=== PATIENT | female | born 1985 | race Caucasian/White ===

== ENCOUNTER 2022-09-21 09:04 | Outpatient (CLI) | payer OTHER, SELFPAY ==
[2022-09-21 10:15] LABS: H pylori Ag Stool* Negative (Negative)
== END 2022-09-21 09:05 | disposition home or self-care (01) ==
LOC: NFLDREF 09:04
PROVIDERS: PCP Family Medicine; Visit Provider Family Medicine
DX: R10.13 Epigastric pain (principal)
CPT/HCPCS: 87338

== ENCOUNTER 2023-05-07 11:05 | Outpatient (CLI) | payer OTHER, SELFPAY ==
--- NOTE | 2023-05-07 11:00 | CRLHL7_ITS ---
For Patients: As a result of the Century Cures Act, medical imaging exams and procedure reports are released immediately into your electronic medical record. You may view this report before your referring provider. If you have questions, please contact your health care provider. INDICATION: First trimester scan, establish dates. COMPARISON: None. TECHNIQUE: Real-time huddleston-scale imaging of the pelvis was performed. FINDINGS: Sonographic imaging demonstrates a single living intrauterine gestation. The embryo demonstrates a regular cardiac rate measuring 167 beats per minute. The embryo`s crown-rump length measurement of 1.7 cm corresponds to a gestational age of 8 weeks 1 day with a sonographic due date of 12/16/2023. There is a normal-appearing yolk sac. There are no gross abnormalities noted within the embryo at this early state of development. The gestational sac has a normal appearance. There is no evidence of a perigestational hemorrhage. The amount of fluid within the sac appears appropriate for gestational age. The cervix is closed. Posterior fundal fibroid measuring 1.6 x 1.1 x 1.5 cm. The ovaries are of normal size. Corpus luteal cyst left ovary. There are no suspicious fluid collections noted in the cul-de-sac. IMPRESSION: Single living intrauterine with sonographic gestational age 8 weeks 1 day and sonographic due date 12/16/2023. Dictated by Masoud John MD @ 05/07/2023 11:47:58 AM (Electronically Signed)
== END 2023-05-07 11:06 | disposition home or self-care (01) ==
LOC: US 11:07
PROVIDERS: PCP Family Medicine; Visit Provider Physician Assistant
DX: Z34.91 Encounter for supervision of normal pregnancy, unspecified, first trimester (principal); Z3A.01 Less than 8 weeks gestation of pregnancy
CPT/HCPCS: 76801; 84443; 86592; 86703; 86704; 86706; 86762; 86787; 86803; 86850; 86900; 86901; 87086; 87340; 87491; 87591

== ENCOUNTER 2023-05-17 11:04 | Outpatient (CLI) | payer OTHER, SELFPAY ==
--- NOTE | 2023-05-17 11:00 | CRLHL7_ITS ---
For Patients: As a result of the Century Cures Act, medical imaging exams and procedure reports are released immediately into your electronic medical record. You may view this report before your referring provider. If you have questions, please contact your health care provider. INDICATION: NONTOXIC GOITER COMPARISON: none TECHNIQUE: Lemos scale and color Doppler images were acquired of the thyroid gland. FINDINGS: The thyroid gland demonstrates normal uniform echogenicity and has a smooth outer contour. The right lobe measures 5.1 x 1.4 x 1.8 cm and the left lobe measures 5.9 x 1.3 x 2.1 cm in size. Isthmus measures 3 millimeters. Solid and cystic nodule right thyroid lobe measures 8 x 5 x 8 millimeters. The color Doppler images demonstrate increased vascularity. There is no evidence of cervical lymphadenopathy or parathyroid mass. IMPRESSION: Heterogeneous thyroid gland with increased vascularity. No dominant or suspicious nodule. Dictated by Masoud John MD @ 05/17/2023 11:35:58 AM (Electronically Signed)
== END 2023-05-17 11:05 | disposition home or self-care (01) ==
PROVIDERS: PCP Family Medicine; Visit Provider Physician Assistant
DX: E04.9 Nontoxic goiter, unspecified (principal)
CPT/HCPCS: 76536

== ENCOUNTER 2023-09-25 12:31 | Outpatient (CLI) | payer OTHER, SELFPAY | END 2023-09-25 12:32 | disposition home or self-care (01) | LOC: NFLDREF 09-27 07:58 | PROVIDERS: PCP Family Medicine; Referring Provider Family Medicine; Visit Provider Advanced Practice Midwife | DX: Z34.83 Encounter for supervision of other normal pregnancy, third trimester (principal) | CPT/HCPCS: 86592 ==

== ENCOUNTER 2023-11-20 13:35 | Outpatient (CLI) | payer OTHER, SELFPAY | END 2023-11-20 13:36 | disposition home or self-care (01) | LOC: NFLDREF 11-22 05:55 | PROVIDERS: PCP Family Medicine; Referring Provider Family Medicine; Visit Provider Advanced Practice Midwife | DX: Z34.93 Encounter for supervision of normal pregnancy, unspecified, third trimester (principal); Z34.83 Encounter for supervision of other normal pregnancy, third trimester; O09.523 Supervision of elderly multigravida, third trimester | CPT/HCPCS: 76816; 76819; 87081; 87653 ==

== ENCOUNTER 2023-11-27 10:21 | Outpatient (CLI) | payer OTHER, SELFPAY ==
[2023-12-11 01:07] VITALS: BMI 25.0
== END 2023-11-27 10:22 | disposition home or self-care (01) ==
LOC: NFLDREF 10:22
PROVIDERS: PCP Family Medicine; Visit Provider Advanced Practice Midwife
DX: R30.0 Dysuria (principal)
CPT/HCPCS: 87086

== ENCOUNTER 2023-12-11 02:33 | Inpatient (IN) | payer OTHER, SELFPAY ==
[2023-12-11] VITALS (19 sets, daily range): BP systolic 104–134; BP diastolic 55–85; PULSE 64–87; RESP 16; TEMP 36.3–37.1; O2SAT 96–98; BMI 25.0
--- NOTE | 2023-12-11 02:10 | W.PM.LDBA ---
Subjective History of Present Illness Date Seen: 12/11/23 Narrative: Rasheeda is being admitted to Labor and Delivery for SROM of clear fluid at 2030 this evening. She is a 38 year old at 39.0 weeks gestation. Her full history and physical was dictated by Xavi Jeter CNM on 11/27/23. Please see this for details. Specific Issues/Plans Has corinne Brito, Partner Ashok H&P done by GAEL Al on 11/27/2023 1. AMA, 40 at time of delivery Cell free DNA: [id number], low risk Level 2 ultrasound: Referral to [place] per patient request; records received 08/28; 07/30/23:[facility] [place] 20.2 (No clear EFW), no abnormalities noted, placenta is posterior without previa, LASHON normal, cervix is long and closed. Recommend low dose ASA (she declines), growth US at 28 and 36 weeks (Repeat at least once in 3rd trimester), BPP or NST starting at 36 weeks, and IOL at 39 weeks but no later than 41 weeks. Growth ultrasound between 28 and 36 weeks: agrees to do one US, prefers 36 weeks; Plan BPP and US at 36 weeks: EFW 70%, BPP 8/8 Weekly NST starting 37 weeks Recommend delivery at 39-41 weeks, would prefer IOL at 41 weeks 2. Thyroid enlargement noted at 1st OB Thyroid ultrasound:cystic nodule right thyroid lobe measures 8 x 5 x 8 millimeters, follow up needed? Consider repeat , consider biopsy? TSH: Normal 3. Hx of melanoma Consider sending placenta to pathology per [facility] recommendation for concern of metastasis 4. GBS positive Declines antibiotics, declination signed Flu shot:05/07/23 OB - Problem Based A/P Additional Plan (1) Breech presentation: Status: Acute (2) SROM (spontaneous rupture of membranes): Status: Acute (3) 39 weeks gestation of : Status: Acute Plan Assessment:?? at 39.0 weeks gestation?? GBS positive? Patient is coping well with challenges of labor.?? Labor type: Spontaneous, Early labor? Category 1 FHR pattern.? complicated by: 1. AMA, 40 at time of delivery Cell free DNA: [id number], low risk Level 2 ultrasound: Referral to [place] per patient request; records received 08/28; 07/30/23:[facility] [place] 20.2 (No clear EFW), no abnormalities noted, placenta is posterior without previa, LASHON normal, cervix is long and closed. Recommend low dose ASA (she declines), growth US at 28 and 36 weeks (Repeat at least once in 3rd trimester), BPP or NST starting at 36 weeks, and IOL at 39 weeks but no later than 41 weeks. Growth ultrasound between 28 and 36 weeks: agrees to do one US, prefers 36 weeks; Plan BPP and US at 36 weeks: EFW 70%, BPP 8/8 Weekly NST starting 37 weeks Recommend delivery at 39-41 weeks, would prefer IOL at 41 weeks 2. Thyroid enlargement noted at 1st OB Thyroid ultrasound:cystic nodule right thyroid lobe measures 8 x 5 x 8 millimeters, follow up needed? Consider repeat , consider biopsy? TSH: Normal 3. Hx of melanoma Consider sending placenta to pathology per [facility] recommendation for concern of metastasis 4. GBS positive Declines antibiotics, declination signed. On admission has now decided to receive antibiotics. 5. Breech position on admission Plan:?? ?Admit to L & D? IV access: SL for surgery Monitoring per policy: continuous? GBS prophylaxis initiated for GBS positive status. Will treat with antibiotics per protocol.? Patient encouraged to reposition, side lying release until surgery team arrives. Outbound Sales Professional is present and helping with positioning. OB consulted for breech positioning and need for section Delivery/Labor/Induction Plan Plan: Section OB Exam Physical Exam Vital signs: Temp Pulse Resp BP Pulse Ox 98.2 F 69 16 104/55 L 98 12/11/23 01:09 12/11/23 01:09 12/11/23 01:09 12/11/23 01:09 12/11/23 01:10 Narrative: Vitals Reviewed Constitutional:? Alert and oriented x3 HEENT:? Normocephalic, atraumatic Neck:? Supple Lungs:? Clear to auscultation bilaterally Heart:? Regular rate and rhythm, no murmur, rub or gallop Abdomen:? Soft, nontender, and gravid. Vertex by Darinel's, confirmed with cervical exam. Extremities:? No edema or erythema Cervix: deferred, breech by Darinel's and US NST: 125 bpm/moderate variability/+accelerations/no decelerations/rare contractions Detailed Labor and Delivery Exam Patient Gravid: Yes
[2023-12-11] MEDS: LACTATED RINGERS 1000 ML 1,000 ML 900 ML IV (02:26)
[2023-12-11 02:43] LABS: Basophils Absolute Auto 0.02 K/uL (0.00-0.30); Basophils Percent Auto 0.3 % (0.0-3.0); Eosinophils Absolute Auto 0.01 K/uL (0.00-0.50); Eosinophils Percent Auto 0.1 % (0.0-7.0); Hematocrit 37.8 % (33.0-51.0); Hemoglobin* 12.3 gm/dL (12.0-16.0); Immature Granulocytes Abs Auto 0.08 K/uL (0.00-0.30); Lymphocytes Percent Auto 19.7 % (20-44); Mean Corpuscular HGB Conc 33 gm/dL (32-36); Mean Corpuscular Hemoglobin 30 pg (26-34); Mean Corpuscular Volume 93 fL (80-100); Monocytes Percent Auto 9.3 % (0.0-11.0); Neutrophils Absolute Auto 5.39 K/uL (1.7-7.0); Neutrophils Percent Auto 69.6 % (42.0-72.0); Platelet Count* 201 K/uL (140-440); Red Blood Count 4.08 m/uL (4.00-5.20); White Blood Count* 7.75 K/uL (4.50-11.00)
[2023-12-11 02:47] LABS: Slide Review Reflex No
--- NOTE | 2023-12-11 03:21 | PM.OBCN1 ---
OB - CN: HPI Date of Consult Time Seen by Provider: 02:50 Date Seen: 12/11/23 Patient: [facility] Patient Consult date: 12/11/23 Requesting Physician: Amy Forte CNM Primary Care Provider: Masoud Rivera MD Consult Narrative Reason for consult: malpresentation Narrative: The patient is a 38 year old G 4 P 2014 at 39 0/7 weeks gestation that was admitted to the Center on 12/11/23 after SROM for delivery. I was called in by GAEL due to breech presentation. History of Present Dating criteria: based on LMP care: good care Ultrasounds: normal 1st trimester US and normal mid trimester US History History 4 Elective abortions 1 Para 2 Spontaneous abortions Hx # Term Pregnancies 2 Ectopic pregnancies Hx # Pregnancies Multiple births Number of Living Children 2 Past Pregnancies Del. Date GA/Weeks Outcome Route wt Inf Gender Labor Lgth Anesthesia Location Provider Compli Unknown elective 07/15/16 40 live - full term vaginal delivery 3.203 kg Male 8hrs other [place] 11/20/17 39 live - full term vaginal delivery 3.062 kg Female 5hrs other [place] Labs GBS status: positive OB Labs: Lab Assessment Start: 12/11/23 02:25 Freq: ONCE Status: Complete Protocol: PC.OBGBS Activity Type Activity Date Activity User E-sign Co-sign Detail Recorded Client Recorded Date Recorded By Document 12/11/23 02:33 [facility] [id number] 12/11/23 02:33 [facility] 12/11/23 02:33 Lab Assessment GBS Status positive Is Patient Allergic to Penicillin? 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 - Attention-deficit hyperactivity disorder, predominantly inattentive type (ICD-10) History of use of contraceptive intrauterine device (IUD) (12/2018) ?Z92.0 - Personal history of contraception (ICD-10) History of atypical nevus (2016) ?Z87.898 - Personal history of other specified conditions (ICD-10) Anxiety and depression ?F41.9 - Anxiety disorder, unspecified (ICD-10) ?F32.A - Depression, unspecified (ICD-10) Surgical History Vaginal delivery ?O80 - Encounter for full-term uncomplicated delivery (ICD-10) History of melanoma excision (03/2019) ?Z98.890 - Other specified postprocedural states (ICD-10) ?Z85.820 - Personal history of malignant melanoma of skin (ICD-10) Family History Father Alcohol dependence Diabetes Paternal Grandmother Diabetes Family/Other Colon cancer High cholesterol Nonmelanoma skin cancer Social History Narrative: History of blood transfusion: no. SOCIAL HISTORY: Occupation: [id number] mom. Marital status: . Episcopalian/cultural needs: no. Chemical or radiation exposure: no. Pre- tobacco use: no. Pre- alcohol use: no. Current tobacco use: no. Current alcohol use: no. Recreational drug use: no. Dietary restrictions: no. Blood transfusion acceptable in an emergency: yes. FAMILY AND GENETIC HISTORY: Negative for recurrent loss, defects, inheritable disease PSYCHOSOCIAL HISTORY: History of depression or currently depressed: yes, history. Current or past physical, emotional, or sexual mistreatment: no. Problems that will make it hard to make it to appointments: no. Smoking Status: Never smoker Little interest or pleasure in doing things: not at all Feeling down, depressed, or hopeless: not at all Meds Home Medications and Allergies Home Medications Medication Instructions Recorded Confirmed Type docosahexaenoic acid 200 mg mg PO 05/07/23 12/05/23 History capsule ( DHA) esomeprazole magnesium 20 mg 20 mg PO QDAY 11/27/23 12/11/23 History capsule,delayed release ferrous gluconate 240 mg (27 mg 240 mg PO QDAY 11/27/23 12/11/23 History iron) tablet (Ferate) Allergies Allergy/AdvReac Type Severity Reaction Status Date / Time No Known Drug Allergies Allergy Verified 12/05/23 09:22 OB - H&P: Exam Physical Exam: Vital signs: Temp Pulse Resp BP Pulse Ox 98.2 F 69 16 104/55 L 98 12/11/23 01:12/11/23 01:12/11/23 01:12/11/23 01:12/11/23 01:10 Narrative: Bedside US repeated and baby is VERTEX! Cervix: 4.5cm/80/vertex/-1 OB - Results Labs Labs: Short CBC 12/11/23 Range/Units 02:30 WBC 7.75 (4.50-11.00) K/uL Hgb 12.3 (12.0-16.0) gm/dL Hct 37.8 (33.0-51.0) % Plt Count 201 (140-440) K/uL OB - CN: A/P Assessment and Plan (1) Breech presentation: Status: Acute (2) SROM (spontaneous rupture of membranes): Status: Acute (3) 39 weeks gestation of : Status: Acute Plan Unstable lie. Bedside US repeated prior to proceeding to OR and baby is vertex. Cervical exam completed and patient is 4.5cm/80%/-1. Will proceed with expectant management, care to be resumed by CNM. Will remain aware.
[2023-12-11] MEDS: AMPICILLIN 2 GM in 0.9 % SODIUM CHLORIDE Mini-bag 100 ML IVPB (03:27)
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
[2023-12-11] MEDS: OXYTOCIN 30 unit/500 ML in NS 30 UNIT/500 ML BAG 325 UNIT IVPB (04:38)
--- NOTE | 2023-12-11 04:54 | W.PM.OBVAGDE ---
OB Procedure Vag Delivery Mother Details Mother Details: The patient is a 38 year-old, 4, Para 2, admitted on 12/11/23 at 39.0 weeks gestation. : 4 Para: 3 Weeks Gestation: 39.0 Admission Date: 12/10/23 Additional Details Amniotic Membrane Status: SROM Amniotic Membrane Rupture Date: 12/10/23 Amniotic Membrane Rupture Time: 22:30 Amniotic Membrane Fluid Description: Clear Analgesia/Anesthesia Type: Nitrous Oxide Waterbirth: No Pitcoin: Yes (for AMTSL) Intrapartal Events: None Labor Onset: 03:30 Complete: 04:25 Pushin:25 Heart: heart tones during second stage were intermittently monitored FHR 125-135 with audible increases in heart rate, with no audible decelerations heard. Delivery Details Delivery Date: 12/11/23 Delivery Time: 04:35 Route of delivery: Gender: Female Viability: Alive; Heart Rate Present Position at Delivery: OA Delivery Details: 38?y.o?at 39.0 weeks.? Rasheeda had SROM for clear fluid at home around 2229, when she arrived to the birthing unit she was leaking a large amount of clear fluid and having contractions about every 5 minutes. When examining her by Darinel's fetus did not feel to be vertex, bedside US confirmed oblique breech position. ?She was informed of this finding and the OB was consulted for possible section. While waiting for OB provider to arrive to discuss surgery, Rasheeda did some inversions and side lying release. Just before going to the OR she requested another exam with the US for position and fetus was found vertex. She then began to have more regular labor contractions with increased intensity and progressed normally to complete. ? She became complete at 0425.??She pushed in high fowlers and hands and knees positions effectively.? Spontaneous vaginal delivery at 0435 of?a viable? female infant.??Delivered in vertex OA position.??Shoulders delivered easily.? Spontaneous cry noted.?? placed on maternal abdomen.??Cord?was clamped and cut after a 5+ minute delay.??Nose and mouth were bulb suctioned.? Shoulder dystocia: no? Nuchal cord: no? Meconium stained?fluid: no? Water : no? ? ? 8 at 1 minute and 9 at 5 minutes.? Weight is pending. ? Placenta delivered spontaneously and?complete?at 0443 with a?3 vessel?cord.?? Bleeding controlled with fundal massage and?pitocin?for AMTSL.? ? Mother and infant were stable after delivery.? ? Lacerations:? .??First degree vaginal laceration, not bleeding, not repaired?with shared decision making. ? Bleeding?post delivery?was: minimal. ?The fundus was firm to palpation.? Blood loss: 50?mL.? Blood loss measurement type: QBL? ? ? Sponge,?lap?and needles counts are correct.? Mother and infant were stable after delivery.? 1 Minute Interval Total Score: 8 5 Minute Interval Total Score: 9 Additional Details Shoulder Dystocia: No Placenta Delivery Time: 04:43 Placental Delivery Description: Spontaneous Procedure Done: Global Blood Loss: 50 Laceration: Vaginal - 1st Degree Blood Loss Measurement Type: QBL Bakri Used: No Sponge/Need Count Correct: Yes Cord Vessel Description: 3 Vessels Event Summary Status: Mother and infant were stable after delivery. Disposition: floor
[2023-12-11] MEDS: IBUPROFEN 600 MG TABLET PO ×2 (12:01→20:59)
--- NOTE | 2023-12-11 16:19 | PC.SOCIAL ---
Received social work referral. Met with pt to discuss concerns for safety. Pt has a history of depression and anxiety. Discussed history with pt. Pt has been in therapy in the past and has resources to get therapy, if needed. Pt identifies that she has a solid support network that includes her hand shaker coming into her home for the next few weeks in the mornings, her mother coming into the home in the afternoons (for an unlimited period of time, as needed), and several friends (that have children) that she meets with as support. Pt is aware of signs and symptoms of post- depression as she identifies that she has been diagnosed with it in the past with her other pregnancies post . Pt does not have any concerns for safety at her home. Discussed pt's concern to stay in the hospital for two days and pt's not being in agreement. Pt states that her has anxiety and worries about things often, but is not unsafe to be around for pt or pt's children. Pt informs that in her relationship, per and agreement with her , she is the primary caregiver for the children at home and her takes the financial responsibility and works at a business he owns. Pt informs that her 6 year old and 7 year old are currently with her and mother (sharing responsibility) during her hospital stay. Pt's is very busy with the business and doesn't have much time at home with the children. Pt reports that she is financially secure and the has all items needed to return home. Pt is not in need of any resources at this time. Informed pt that she may reach out to social work at any time if she has any questions or needs resources. Provided update to nursing. Social Work will follow up as needed.
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
[2023-12-11] MEDS: ACETAMINOPHEN 500 MG TABLET 1000 MG PO (18:35)
[2023-12-12 04:00] VITALS: BP 124/79; PULSE 60; RESP 16; TEMP 36.6; O2SAT 99
[2023-12-12] MEDS: IBUPROFEN 600 MG TABLET PO ×4 (04:21→20:48)
[2023-12-12] MEDS: DOCUSATE SODIUM 100 MG CAPSULE PO (06:58)
[2023-12-12 08:00] VITALS: BP 126/76; PULSE 81; RESP 16; O2SAT 99
--- NOTE | 2023-12-12 09:02 | PM.OBPNVD1 ---
OB - PN:Subj Subjective Date Seen: 12/12/23 Patient comments OB post-: no complaints, pain well controlled and flatus present [place] feeding status: exclusively Narrative: Rasheeda is a 38 y.o. who was admitted to L & D for spontaneous labor. ?She had an uncomplicated NVD.?The patient feels well. ?The pain is well controlled with current medications. ?She has no new complaints. ?She is breast feeding and reports things are going well.? the patient has done well.? Vitals have been stable.? She has remained afebrile.? Has a good appetite, is tolerating a general diet. ?She is voiding without difficulty.? She is passing gas and has not had a bowel movement.? She is ambulating and denies any dizziness.? Has Small amount of rubra lochia. OB - PN: Obj Exam Physical Exam: Vital signs: Temp Pulse Resp BP Pulse Ox O2 Del Method 97.9 F 81 16 126/76 99 Room Air 12/12/23 04:00 12/12/23 08:00 12/12/23 08:00 12/12/23 08:00 12/12/23 08:00 12/12/23 08:00 Narrative: GENERAL APPEARANCE:? normal affect, alert, no distress MOOD:? appropriate CHEST:? clear to auscultation HEART:? regular rate and rhythm ABDOMEN:? soft, non-tender the uterine fundus is At Umbilicus, Midline and is appropriate for the stage of recovery. PERINEUM:? mild edema of the perineum, there is a vaginal Laceration,? that is healing well. EXTREMITIES:? normal and no edema OB - PN: A/P Delivery Assessment and Plan (1) Lactating mother: Status: Acute (2) care and examination immediately after delivery: Status: Acute Plan day: 1 Plan: routine care Comments: Routine care Lactating mother. May see if desired. Anticipate discharge tomorrow.
[2023-12-12 16:55] VITALS: BP 100/62; RESP 18; TEMP 36.7; O2SAT 96
[2023-12-13 00:09] VITALS: BP 122/70; PULSE 72; RESP 18; TEMP 36.7; O2SAT 97
[2023-12-13] MEDS: IBUPROFEN 600 MG TABLET PO (04:16)
[2023-12-13] MEDS: DOCUSATE SODIUM 100 MG CAPSULE PO (04:17)
--- NOTE | 2023-12-13 07:35 | P.DS_ITS ---
DS: Providers Provider Date Seen: 12/13/23 Date of admission: 12/11/23 02:33 Primary care physician: Masoud Rivera MD Admitting Clinician: Amy Forte CNM Consults: 12/11/23 02:26 Consult to Physician [CONS] Routine Comment: Consulting Provider: Misti Sewell Has provider been notified: Yes 12/11/23 06:52 Consult to Humanities And Languages Professor [CONS] Routine Comment: Reason for Consult:: Social Service Consult Attending Physician on discharge: Amy Forte CNM Date of Discharge: 12/13/23 DS: Diagnosis Discharge Diagnosis (1) Lactating mother: Status: Acute (2) care and examination immediately after delivery: Status: Acute (3) Anxiety and depression: Status: Acute (4) ADHD, predominantly inattentive type: Status: Acute (5) Thyroid enlargement: Status: Acute Exam Narrative: Exam Narrative: GENERAL APPEARANCE:? normal affect, alert, no distress? MOOD:? appropriate? CHEST:? clear to auscultation and percussion? HEART:? regular rate and rhythm? ABDOMEN:? soft, non-tender the uterine fundus is U/2 and is appropriate for the stage of recovery.? PERINEUM:? mild edema of the perineum, there is a 1st degree laceration that is healing well.? EXTREMITIES:? normal and no edema? Const: Vital Signs, click to edit/add: Vital Signs - 24 hr 12/12/23 08:00 12/12/23 08:00 12/12/23 16:55 Temperature 98.0 F Pulse Rate [Blood Pressure Cuff] 81 Respiratory Rate 16 16 18 Blood Pressure 126/76 Blood Pressure [Ri ght Arm] 126/76 100/62 Pulse Oximetry 99 99 96 Oxygen Delivery Me thod Room Air Room Air 12/13/23 00:09 Temperature 98.1 F Pulse Rate [Blood Pressure Cuff] 72 Respiratory Rate 18 Blood Pressure Blood Pressure [Ri ght Arm] 122/70 Pulse Oximetry 97 Oxygen Delivery Me thod Room Air Documenting provider has reviewed patient's vital signs: yes OB - DS: Summary Hospital Course Hospital Course: The patient is a 38 year old G 4 P 3 at 39.0 weeks gestation that was admitted to the Center on 12/11/23 for SROM. She had an uncomplicated vaginal delivery. She delivered a viable female . She is breast feeding and denies concerns. the patient has done well. Her pain is well controlled with current medications.? She has no new complaints.? Urinary output is adequate and she is voiding without difficulty.? Has a good appetite, is tolerating a general diet, is passing flatus, and has not had a bowel movement.? Has small amount of rubra lochia.? She is ambulating well. She is planning on partner vasectomy for control. Encouraged condoms/diaphragm until testing is complete. Peripartum Data delivery method: Vaginal Laceration description: Vaginal - 1st Degree Episiotomy description: None Procedures: Procedures Operation Date: 12/11/23 03:00 Actual Procedure Side Surgeon p Section Misti Sewell MD complications: none [place] Gender: Female Discharge Plan: Home Status at Discharge Functional status at discharge: independent ambulation Overall status at discharge: patient is progressing back to baseline Time Spent with Patient Time attestation: Total time spent providing and/or coordinating discharge services: Discharge Plan Discharge Disposition: Home, Self-Care Date of Admission: 12/11/23 02:33 Attending Provider on Discharge: Angélica Villalba Consulting Providers: Misti Sewell Primary Care Provider: Masoud Rivera Condition: Stable Anticipated Discharge Date/Time: 12/13/23 09:00 Discharge Medications: New docusate sodium 100 mg Capsule 100 mg PO DAILY Qty: 90 0RF Rx Instructions: Take 1-2 tablets daily as needed for constipation. ibuprofen 600 mg Tablet 600 mg PO Q6H PRNQty: 20 0RF Continued DHA 200 mg capsule PO esomeprazole magnesium 20 mg capsule,delayed release(DR/EC) 20 mg PO QDAY Discontinued ferrous gluconate [Ferate] 240 mg (27 mg iron) tablet 240 mg PO QDAY Discharge Orders: Discharge Order (Routine); Ordered 12/13/23 Ordered By: Angélica Villalba Patient Education: OB Vaginal/Breast Feeding Additional Instructions: Discharge instructions were reviewed with the patient including signs and symptoms of infection and home going medications.? Lifting Restrictions: 20 pounds for 6? weeks? ?? Do not drive while taking narcotic pain meds.? Off Work or School for 6 weeks.? ?? Symptoms to report to doctor:? -Bleeding that saturates more than one pad per hour? -Passing clots larger than the size of a golf ball? -Pain not relieved by prescribed medication? -Fever above 100.4 degrees Fahrenheit? -A foul vaginal odor? -Difficulty in emotions, mood and functions? -Thoughts of hurting yourself and/or ? -Painful, reddened area in your breast? -Any drainage, redness or tenderness in your IV/epidural site? -Severe headache that doesn't improve after taking medications? -Changes in vision, including temporary loss of vision, blurred vision, and/or light sensitivity? -Upper abdominal pain (usually under ribs on the right side)? -Decrease in urination or painful, frequent urinating? -Chest pain? -Shortness of breath? -Tenderness or pain with redness and/swelling in the calf(s) of your leg? ?? Follow Up in clinic in 2 and 6 weeks.? ?? consultation services are available to all mothers and babies for the first year after delivery.? To make an appointment, please call [phone].? Follow Up Appointments: [facility] [Provider Group] Forms: MyHealth Info Instructions
[2023-12-13 08:15] VITALS: BP 119/77; PULSE 76; RESP 16; TEMP 36.6
[2023-12-13 12:45] LABS: Rapid Plasma Reagin (RPR) Non Reactive (Non Reactive)
== END 2023-12-13 10:00 | disposition home or self-care (01) | DRG 807 ==
LOC: OB OUT 12-13 11:25
PROVIDERS: Obstetrics & Gynecology; Admitting Provider Advanced Practice Midwife; PCP Family Medicine; Visit Provider Advanced Practice Midwife
DX: O99.824 Streptococcus B carrier state complicating childbirth (principal); Z37.0 Single live birth; Z63.0 Problems in relationship with spouse or partner; O70.0 First degree perineal laceration during delivery; O99.284 Endocrine, nutritional and metabolic diseases complicating childbirth; E04.1 Nontoxic single thyroid nodule; O32.1XX0 Maternal care for breech presentation, not applicable or unspecified; O99.344 Other mental disorders complicating childbirth; F41.9 Anxiety disorder, unspecified; F32.A Depression, unspecified; F90.0 Attention-deficit hyperactivity disorder, predominantly inattentive type; Z85.820 Personal history of malignant melanoma of skin; Z3A.39 39 weeks gestation of pregnancy
CPT/HCPCS: 36415; 76815; 85025; 86592; 86850; 86900; 86901; 88307; G0463; A9270; C9290; J0290; J0665; J1100; J2274; J2405; J2590; J7120